=== PATIENT | female | born 1985 | race African-American/Black ===

== ENCOUNTER 2022-09-24 11:02 | Emergency (ER) | payer MEDICAID ==
[~2022-09-24] VITALS: Ht 152.4 cm; Wt 77.0 kg
[2022-09-24] MEDS ORDERED: ACETAMINOPHEN 325MG TABLET PO ONE (11:30)
[2022-09-24] MEDS ORDERED: LIDOCAINE 5% PATCH TOP ONE (11:30)
[2022-09-24] MEDS ORDERED: ACETAMINOPHEN 325MG TABLET PO SCH (15:15)
[2022-09-24] MEDS ORDERED: LIDOCAINE 5% PATCH TOP SCH (15:15)
[2022-09-24 15:26] VITALS: BP 129/87
[2022-09-24] MEDS ORDERED: IBUP-2029 MT (17:46)
== END 2022-09-24 18:28 | disposition home or self-care (01) ==
LOC: ER 11:02
DX: S40.022A Contusion of left upper arm, initial encounter (principal); S93.491A Sprain of other ligament of right ankle, initial encounter; S40.021A Contusion of right upper arm, initial encounter; R51.9 Headache, unspecified; E11.9 Type 2 diabetes mellitus without complications; Y08.89XA Assault by other specified means, initial encounter; Y93.9 Activity, unspecified; Y92.9 Unspecified place or not applicable
CPT/HCPCS: 70486; 71111; 73610; 81025; 99284